=== PATIENT | male | born 1940 | race Caucasian/White ===

== ENCOUNTER 2020-05-12 09:51 | Outpatient (RCR) | payer MEDICARE | END 2020-05-12 14:36 | disposition home or self-care (01) | PROVIDERS: ATTEND Internal Medicine | DX: R20.2 Paresthesia of skin (principal) ==

== ENCOUNTER → 2021-02-14 | Outpatient (CLI) | payer MEDICARE ==
--- NOTE | 2021-02-14 14:28 | Diagnostic Imaging Report ---
HISTORY: Pre-MRI screening. History of retinal repair. COMPARISON: None. TECHNIQUE: Two views of the skull. FINDINGS: No acute osseous abnormality is seen. No metal foreign body is seen in the orbits. The maxillary sinuses appear patent. There are marked degenerative changes in the cervical spine. IMPRESSION: 1. No metal foreign body is seen in the orbits. Dictated by: Dictated on workstation # [id number]
--- NOTE | 2021-02-14 18:00 | Diagnostic Imaging Report ---
CLINICAL INDICATION: Patient has been walking with a limp for some time. EXAM: MRI of the lumbar spine performed without IV contrast. Sagittal T2, sagittal T1, sagittal T2 fat-sat, and axial T2. COMPARISON: None. FINDINGS: There is no acute lumbar spine fracture. 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 There are Modic type II degenerative signal changes involving the L4-L5 level. 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 There is a 15 mm cyst involving the left kidney. There are hypertrophic spurs throughout the lumbar spine and facet arthropathy. There is tortuosity of the cauda equina nerve roots at the L4-L5 level due to severe central canal stenosis at the L4-L5 level. Otherwise, the visualized portions of the distal thoracic spinal cord, conus medullaris, and cauda equina nerve roots are unremarkable. The conus medullaris tip is seen at the L1-L2 intervertebral level. T11-T12: There are chronic Schmorl's nodes involving the endplates. There is no significant central canal or neural foramen narrowing. T12-L1: There is mild diffuse disc bulge with moderate loss of disc space height. There are chronic Schmorl's nodes involving the endplates. There is mild bilateral facet arthropathy. There is minimal central canal narrowing. There is no significant neural foramen narrowing. L1-L2: There is subtle grade 1 retrolisthesis of L1 on L2. There is a diffuse disc bulge and moderate loss of disc space height. There are chronic Schmorl's nodes involving the endplates. There is [id number] facet arthropathy. There is mild central canal narrowing. There is severe bilateral neural foramen narrowing. L2-L3: There is moderate bilateral facet arthropathy. There is a diffuse disc bulge with posterior disc bulge component. There is mild central canal narrowing. There is severe bilateral neural foramen narrowing. L3-L4: There is a diffuse disc bulge with mild loss of disc space height. There is moderate bilateral facet arthropathy/hypertrophy. There is moderate right neural foramen narrowing and severe left neural foramen narrowing. 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 There is a diffuse disc bulge with slight uncovering of the posterior aspect of the disc. There is severe bilateral facet arthropathy/hypertrophy and ligamentum flavum buckling. There is severe central canal stenosis and severe right neural foramen narrowing. There is moderate left neural foramen narrowing. L5-S1: There is grade 1 anterolisthesis of L5 on S1. There is a diffuse disc bulge and severe bilateral facet arthropathy. There is [id number] left neural foramen narrowing and [id number] right neural foramen narrowing. There is no significant central canal stenosis. 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 Dictated by: Dictated on workstation # [id number]
== END ==
LOC: RAD 14:00
PROVIDERS: ATTEND Orthopaedic Surgery Orthopaedic Surgery of the Spine
DX: Z01.818 Encounter for other preprocedural examination (principal); M43.17 Spondylolisthesis, lumbosacral region; M47.817 Spondylosis without myelopathy or radiculopathy, lumbosacral region; M51.27 Other intervertebral disc displacement, lumbosacral region; M48.07 Spinal stenosis, lumbosacral region; M51.36 Other intervertebral disc degeneration, lumbar region; M21.372 Foot drop, left foot; Z98.890 Other specified postprocedural states
CPT/HCPCS: 70250; 72148

== ENCOUNTER → 2021-10-25 | Outpatient (CLI) | payer MEDICARE ==
[2021-10-25 15:42] LABS: ABSOLUTE RETIC # 55 10e9/uL (24-90); BASOPHILS % (AUTO) 0 % (0-10); EOSINOPHILS # (AUTO) 0.1 10^3/uL (0.0-0.3); EOSINOPHILS % (AUTO) 2 % (0-10); HEMATOCRIT 46 % (40-54); HEMOGLOBIN 15.5 g/dL (13.3-17.7); LYMPHOCYTES # (AUTO) 3.3 10^3/uL (1.0-4.0); LYMPHOCYTES % (AUTO) 46 % (12-44); MEAN CORPUSCULAR HEMOGLOBIN 30 pg (25-34); MEAN CORPUSCULAR HGB CONC 34 g/dL (32-36); MEAN CORPUSCULAR VOLUME 89 fL (80-99); MEAN PLATELET VOLUME 9.4 fL (9.0-12.2); MONOCYTES # (AUTO) 0.5 10^3/uL (0.0-1.0); MONOCYTES % (AUTO) 8 % (0-12); NEUTROPHILS # (AUTO) 3.2 10^3/uL (1.8-7.8); NEUTROPHILS % (AUTO) 44 % (42-75); PLATELET COUNT 151 10^3/uL (130-400); RETICULOCYTE % 1.07 % (0.50-2.40); WHITE BLOOD COUNT 7.1 10^3/uL (4.3-11.0)
[2021-10-25 16:03] LABS: EOSINOPHILS % (MANUAL) 4 %; LYMPHOCYTES % (MANUAL) 36 %; MONOCYTES % (MANUAL) 13 %; NEUTROPHILS % (MANUAL) 47 %; RBC MORPH NORMAL
== END ==
LOC: LAB 14:46
PROVIDERS: ATTEND Internal Medicine
DX: D69.6 Thrombocytopenia, unspecified (principal)
CPT/HCPCS: 36415; 85007; 85027; 85045; 85055

== ENCOUNTER 2021-11-20 10:24 | Outpatient (RCR) | payer MEDICARE | END 2021-11-23 | disposition home or self-care (01) | PROVIDERS: ATTEND Internal Medicine | DX: M48.00 Spinal stenosis, site unspecified (principal); M54.10 Radiculopathy, site unspecified ==

== ENCOUNTER 2021-11-24 10:24 | Outpatient (RCR) | payer MEDICARE | END 2021-12-24 | disposition home or self-care (01) | PROVIDERS: ATTEND Internal Medicine | DX: M48.00 Spinal stenosis, site unspecified (principal); M54.10 Radiculopathy, site unspecified ==